=== PATIENT | male | born 1995 ===

== ENCOUNTER 2022-02-12 00:29 | Emergency (ER) | payer SELFPAY ==
[~2022-02-12] VITALS: Ht 165.1 cm; Wt 104.3 kg
[2022-02-12] MEDS ORDERED: TETRACAINE 0.5% OPHTH SOLN 4 ML BTL (SINGLE DOSE ONLY) OU ONE (01:00)
[2022-02-12] MEDS ORDERED: BSS 15 ML IR ONE (03:00)
[2022-02-12 03:04] VITALS: BP 137/77
--- NOTE | 2022-02-12 03:04 | ED EENT ---
History of Present Illness General Chief Complaint: Eye Problems Stated Complaint: CONTACT LOST IN RT EYE Nursing Triage Note: PT REPORTS CONTACT STUCK IN RIGHT EYE Source: patient Exam Limitations: no limitations History of Present Illness Date Seen by Provider: Feb 12, 2022 Time Seen by Provider: 00:45 Allergies and Home Medications Allergies Coded Allergies: No Known Drug Allergies (Unverified , 02/12/22) Past Heivhiw-Cdsppy-Dzyyhl Hx Patient Social History Tobacco Use?: No Use of E-Cig and/or Vaping dev: No Substance use?: No Alcohol Use?: No Immunizations Up To Date Influenza Vaccine Up-to-Date: No; Not Current Physical Exam Vital Signs Vital Signs - First Documented 02/12/22 02/12/22 00:45 03:04 Pulse 61 Resp 16 B/P (MAP) 143/79 (100) Pulse Ox 99 O2 Delivery Room Air Height, Weight, BMI Height: '" Weight: lbs. oz. kg; 38.00 BMI Method: Progress/Results/Core Measures Results/Orders My Orders Orders - JOHN MIJARES MD Tetracaine 0.5% Ophth Leilani Sdv (Tetracai (02/12/22 01:00) Balanced Salt Irrigation Soln (Bss Irrig (02/12/22 03:00) Medications Given in ED Current Medications Medications Dose Ordered Sig/Dilan Route Start Time Stop Time Status Last Admin Dose Admin Balanced Salt Solution 15 ml ONCE ONCE IR 02/12/22 03:00 02/12/22 03:01 DC 02/12/22 02:55 15 ML Tetracaine HCl 4 ml ONCE ONCE OU 02/12/22 01:00 02/12/22 01:01 DC 02/12/22 01:19 4 ML Vital Signs/I&O 02/12/22 02/12/22 00:45 03:04 Pulse 61 65 Resp 16 16 B/P (MAP) 143/79 (100) 137/77 Pulse Ox 99 97 O2 Delivery Room Air Blood Pressure Mean: 100 Progress Progress Note : Progress Note Tetracaine drops were applied. Retractor was used to lift the eyelid. No contact lens was identified. There was an eyelash wedged into the crevice of the epicanthal fold. This was irrigated away with balanced saline. No further foreign body could be identified with thorough exam including retraction of the eyelids. Patient was discharged. See discharge instructions for further discussion. Departure Impression Primary Impression: Foreign body of right eye Qualified Codes: T15.91XA - Foreign body on external eye, part unspecified, right eye, initial encounter Disposition: 01 HOME, SELF-CARE Condition: Improved Departure-Patient Inst. Decision time for Depature: 03:03 Referrals: NO,LOCAL PHYSICIAN (PCP/Family) Primary Care Physician Patient Instructions: Foreign Body in Eye ED Add. Discharge Instructions: No contact lens was seen in your eye or under your eyelid. There was an eyelash at the corner of your eye stuck under your eyelid. This was flushed out in the ER. I recommend no contact use for 24 hours in your right eye. If you are feeling fine after 24 hours, resume contact use as desired. If you are still having irritation throughout the morning, please contact your eye doctor for further evaluation. If you have worsening symptoms and your eye doctor is not available, please return to the emergency room. You may use the saline drops provided in the ER for moistening your eye or artificial tears purchased [id number]. Call with questions or concerns. All discharge instructions reviewed with patient and/or family. Voiced understanding. JOHN MIJARES MD Feb 12, 2022 03:04
== END 2022-02-12 03:08 | disposition home or self-care (01) ==
LOC: ER 00:34
DX: T15.91XA Foreign body on external eye, part unspecified, right eye, initial encounter (principal); W45.8XXA Other foreign body or object entering through skin, initial encounter
CPT/HCPCS: 99282